=== PATIENT | female | born 1990 | race Caucasian/White ===

== ENCOUNTER 2017-10-22 22:37 | Emergency (ER) | payer MEDICAID, OTHER ==
[2017-10-23] MEDS: ACETAMINOPHEN 500 MG TAB PO (00:22)
== END 2017-10-23 02:17 | disposition home or self-care (01) ==
LOC: FTE 22:37
DX: R07.89 Other chest pain (principal); J06.9 Acute upper respiratory infection, unspecified; F17.210 Nicotine dependence, cigarettes, uncomplicated
CPT/HCPCS: 71045; 93005; 99284-25